=== PATIENT | male | born 1970 | race Caucasian/White ===

== ENCOUNTER 2016-12-13 19:39 | Emergency (ER) | payer OTHER ==
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
[2016-12-13] MEDS ORDERED: TORADOL IM ONE (21:17)
[2016-12-13] MEDS ORDERED: FLEXERIL PO ONE (21:17)
[2016-12-13 23:00] VITALS: BP 152/108
== END 2016-12-13 21:45 | disposition home or self-care (01) ==
LOC: ED 19:39
DX: S39.012A Strain of muscle, fascia and tendon of lower back, initial encounter (principal); V43.52XA Car driver injured in collision with other type car in traffic accident, initial encounter; Y93.89 Activity, other specified; Y99.8 Other external cause status; Y92.89 Other specified places as the place of occurrence of the external cause
CPT/HCPCS: 96372; 99282; J1885